=== PATIENT | female | born 1995 | race Hispanic/Latino ===

== ENCOUNTER 2017-12-07 18:38 | Emergency (ER) | payer OTHER ==
[2017-12-07 21:09] LABS: BASO % 0.4 % (0.0-1.0); EOS # 0.1 10^3/uL (0.0-0.50); EOS % 0.7 % (0.0-3.0); HEMATOCRIT 40.1 % (36.0-47.0); HEMOGLOBIN 13.9 g/dl (12.0-15.5); IMMATURE GRANULOCYTE % 0.5 % (0-3.0); LYMPH # 3.2 10^3/uL (1.5-6.5); LYMPH % 29.3 % (24.0-44.0); MEAN CORPUSCULAR HEMOGLOBIN 31.2 pg (27.0-33.0); MEAN CORPUSCULAR HGB CONC 34.7 g/dl (32.0-36.5); MEAN CORPUSCULAR VOLUME 89.9 fl (80.0-96.0); MONO # 0.7 10^3/uL (0.0-0.8); MONO % 6.1 % (0.0-5.0); PLATELET COUNT, AUTOMATED 245 10^3/uL (150-450); RED BLOOD COUNT 4.46 10^6/uL (4.00-5.40); RED CELL DISTRIBUTION WIDTH 14.2 % (11.5-14.5); WHITE BLOOD COUNT 11.1 10^3/uL (4.0-10.0)
[2017-12-07 21:37] LABS: ALBUMIN/GLOBULIN RATIO 1.03 (1.00-1.93); ALKALINE PHOSPHATASE 94 U/L (45-117); ALT/SGPT 31 U/L (12-78); ANION GAP 9 MEQ/L (8-16); AST/SGOT 19 U/L (7-37); BILIRUBIN,DIRECT < 0.1 MG/DL (0.0-0.2); BILIRUBIN,TOTAL 0.2 MG/DL (0.2-1.0); BLOOD UREA NITROGEN 18 MG/DL (7-18); CALCIUM LEVEL 8.8 MG/DL (8.5-10.1); CARBON DIOXIDE LEVEL 27 MEQ/L (21-32); CHLORIDE LEVEL 105 MEQ/L (98-107); CPK CREATINE PHOSPHOKINASE 246 U/L (26-192); GLOMERULAR FILTRATION RATE > 60.0 (>60); GLUCOSE, FASTING 92 MG/DL (70-100); LIPASE 233 U/L (73-393); MAGNESIUM LEVEL 1.9 MG/DL (1.8-2.4); SODIUM LEVEL 141 MEQ/L (136-145); TOTAL PROTEIN 7.9 GM/DL (6.4-8.2); TROPONIN I < 0.02 NG/ML (< 0.10)
[2017-12-07 21:43] LABS: CK-MB VALUE MASS 1.1 NG/ML (<3.6); MB/CK RELATIVE INDEX 0.44 (< OR =4)
[2017-12-07 21:44] LABS: CONTROL LINE UCG INT CTR LINE PRESENT; URINE PREG TEST NEGATIVE (NEGATIVE)
[2017-12-07 21:50] LABS: KETONE, URINE AUTO RFX NEGATIVE (NEGATIVE); LEUKOCYTE ESTERASE UR AUTO RFX NEGATIVE (NEGATIVE); MUCUS, URINE RFX SMALL (NEGATIVE); NITRITE, URINE AUTO RFX NEGATIVE (NEGATIVE); RBC, URINE AUTO RFX 4 /HPF (0-3); SPECIFIC GRAVITY UR AUTO RFX 1.018 (1.002-1.035); SQUAM EPITHELIAL CELL UR AURFX 0 /HPF (0-6); WBC, URINE AUTO RFX 1 /HPF (0-3)
[2017-12-07] MEDS: NS 1,000 ML IV (21:50)
[2017-12-07 22:16] LABS: D-DIMER QUANT 328.7 ng/ml (<500)
[2017-12-07] MEDS: KETOROLAC 30 MG/ML VIAL (J1885) IV (22:27)
[2017-12-07] MEDS: KETOROLAC TROMETHAMINE 10 MG TAB PO (23:12)
== END 2017-12-07 23:20 | disposition home or self-care (01) ==
LOC: M ED 18:38
DX: R51 Headache (principal); R07.89 Other chest pain; R06.02 Shortness of breath; Z91.018 Allergy to other foods
CPT/HCPCS: J1885

== ENCOUNTER 2018-03-01 14:33 | Inpatient (IN) | payer OTHER ==
[2018-03-01 15:08] LABS: HEMATOCRIT 41.6 % (36.0-47.0); MEAN CORPUSCULAR HEMOGLOBIN 30.9 pg (27.0-33.0); MEAN CORPUSCULAR HGB CONC 33.7 g/dl (32.0-36.5); MEAN CORPUSCULAR VOLUME 91.8 fl (80.0-96.0); PLATELET COUNT, AUTOMATED 285 10^3/uL (150-450); RED BLOOD COUNT 4.53 10^6/uL (4.00-5.40); RED CELL DISTRIBUTION WIDTH 13.5 % (11.5-14.5)
[2018-03-01 15:42] LABS: AMPHETAMINES LEVEL URINE NEGATIVE (NEGATIVE); BARBITURATES URINE NEGATIVE (NEGATIVE); BENZODIAZEPINES URINE NEGATIVE (NEGATIVE); CANNABINOIDS URINE NEGATIVE (NEGATIVE); COCAINE METABOLITE URINE NEGATIVE (NEGATIVE); METHADONE URINE NEGATIVE (NEGATIVE); OPIATES URINE NEGATIVE (NEGATIVE); PHENCYCLIDINE URINE NEGATIVE (NEGATIVE)
[2018-03-01 15:54] LABS: ACETAMINOPHEN LEVEL < 2.0 UG/ML (10.0-30.0); ALBUMIN 4.3 GM/DL (3.2-5.2); ALBUMIN/GLOBULIN RATIO 1.26 (1.00-1.93); ALKALINE PHOSPHATASE 97 U/L (45-117); ALT/SGPT 28 U/L (12-78); ANION GAP 7 MEQ/L (8-16); AST/SGOT 19 U/L (7-37); BILIRUBIN,DIRECT < 0.1 MG/DL (0.0-0.2); BILIRUBIN,TOTAL 0.2 MG/DL (0.2-1.0); BLOOD UREA NITROGEN 14 MG/DL (7-18); CALCIUM LEVEL 9.4 MG/DL (8.5-10.1); CARBON DIOXIDE LEVEL 29 MEQ/L (21-32); CHLORIDE LEVEL 106 MEQ/L (98-107); CREATININE FOR GFR 0.78 MG/DL (0.55-1.30); ETHYL ALCOHOL (ETHANOL) < 0.003 % (0.000-0.010); GLOMERULAR FILTRATION RATE > 60.0 (>60); GLUCOSE, FASTING 78 MG/DL (70-100); SALICYLATE LEVEL < 1.7 MG/DL (5.0-30.0); SODIUM LEVEL 142 MEQ/L (136-145); TOTAL PROTEIN 7.7 GM/DL (6.4-8.2)
[2018-03-01] MEDS ORDERED: ACETAMINOPHEN TAB 650MG DOSE (2X325MG) PO (19:00)
[2018-03-01] MEDS ORDERED: MAALOX 30 ML SUSP *UDC PO (19:00)
[2018-03-01] MEDS ORDERED: MOM 30ML SUSPENSION UDC PO (19:00)
[2018-03-02] MEDS: LORazepam 1 MG TAB PO (01:43)
[2018-03-02] MEDS: traZODone 50 MG TAB PO ×2 (01:43→21:51)
[2018-03-02] MEDS ORDERED: NICOTINE 21MG/24HR 1 EA TRANSDERMAL TD (02:30)
[2018-03-02] MEDS: INFLUENZA QUADRIVALENT PF VACCINE 0.5ML SYRINGE (90686) IM (09:00)
[2018-03-02] MEDS ORDERED: hydrOXYzine 10 MG TAB PO (12:45)
[2018-03-02] MEDS: NICOTINE 21MG/24HR 1 EA TRANSDERMAL TD (14:48)
[2018-03-02] MEDS: SERTRALINE HCL 50 MG TAB PO (21:51)
[2018-03-03] MEDS: NICOTINE 21MG/24HR 1 EA TRANSDERMAL TD (08:37)
[2018-03-03] MEDS: SERTRALINE HCL 50 MG TAB PO (22:39)
[2018-03-03] MEDS: traZODone 50 MG TAB PO (22:39)
[2018-03-04] MEDS: NICOTINE 21MG/24HR 1 EA TRANSDERMAL TD (09:00)
== END 2018-03-04 12:56 | disposition home or self-care (01) | DRG 882 ==
LOC: M PSY 03-02 00:23 → M ED 14:33 → M ED INP 18:58
DX: F43.10 Post-traumatic stress disorder, unspecified (principal); R45.851 Suicidal ideations; F17.210 Nicotine dependence, cigarettes, uncomplicated; F32.9 Major depressive disorder, single episode, unspecified; Z91.018 Allergy to other foods; Z79.899 Other long term (current) drug therapy

== ENCOUNTER 2019-01-14 11:17 | Emergency (ER) | payer OTHER ==
[~2019-01-14] VITALS: Ht 154.9 cm; Wt 73.2 kg
[~2019-01-14 11:17] MED LIST: HYDR-643 PO; NEXP1IMP SC; SERT-141 PO; TRAM50TA2 PO; TRAZ1TAB10 PO
[2019-01-14] MEDS ORDERED: ONDA-83 (11:29)
[2019-01-14] MEDS ORDERED: VITA-122 (11:29)
--- NOTE | 2019-01-14 12:58 | REP ---
Clinical: Right pelvic pain . Technique: Transabdominal pelvic ultrasound followed by transvaginal examination for better evaluation of the endometrium and adnexa with color Doppler evaluation of the ovaries. Findings: Bladder is empty Normal anteverted uterus measures 6.4 x 2.6 x 3.7 cm. The endometrial complex measures 2.3 mm thickness. No discrete uterine or endometrial abnormalities are appreciated. Bilateral ovaries are normal in vascularity without evidence for torsion. Right ovary measures 3.4 x 1.6 x 1.4 cm; R I = 0.54, and includes 1.3 cm involuting follicle. Left ovary measures 1.8 x 1.6 x 1.9 cm; R I = 0.54. No free fluid or pelvic mass lesion. Impression: 1. Involuting right ovarian follicle. 2. Otherwise normal uterus and left ovary. Electronically Signed by Paul Blackmon MD 01/14/2019 12:50 P
[2019-01-14] MEDS ORDERED: METR-265 PO (13:21)
[2019-01-14] MEDS ORDERED: TYLETAB14 PO (13:21)
[2019-01-14 13:27] VITALS: BP 116/78
== END 2019-01-14 13:30 | disposition home or self-care (01) ==
LOC: M ED 11:17
DX: N76.0 Acute vaginitis (principal); N83.01 Follicular cyst of right ovary; F41.9 Anxiety disorder, unspecified; F32.9 Major depressive disorder, single episode, unspecified; Z79.899 Other long term (current) drug therapy; Z91.02 Food additives allergy status

== ENCOUNTER → 2019-07-23 | Outpatient (CLI) | payer OTHER ==
[~2019-07-23] MED LIST changes: +METR-265 PO; +ONDA-83; +TYLETAB14 PO; +VITA-122
--- NOTE | 2019-07-24 16:08 | SLEEPCENT ---
DATE OF PROCEDURE:07/23/2019 ORDERED BY: Janene Dickerson Nocturnal polysomnography was performed for evaluation of sleep physiology in this patient with history of excessive somnolence and nonrestorative sleep. 7 hours and 3 minutes of data were reviewed. There were 353 minutes of sleep identified. Sleep latency was prolonged at 62.5 minutes. REM latency was normal at 71.5-minutes. Sleep architecture was fair with three REM cycles noted. Overall sleep efficiency 84.6%. The patient's electrocardiogram showed sinus rhythm with an average heart rate of 63 beats per minute. EEG showed reasonably normal waveforms for awake and sleep. There were 45 respiratory events identified of 10 seconds in duration or greater for an apnea-hypopnea index of 7.6. The events were obstructive not exclusive to sleep stage though REM clustering was appreciated, were seen only in the supine posture. However, the patient spent much of her night in the supine posture. Arousals from respiratory events occurred 1.2 times per hour and oxygen desaturations were seen in the 80s with little limb activity and arousals from limb events were few. IMPRESSION: Mild positional obstructive sleep apnea syndrome (G47.33). Apnea-hypopnea index 7.6. RECOMMENDATIONS: Initial treatment with sleep position retraining for avoidance of the supine posture may be helpful. However, given the patient's oxygen desaturations close clinical followup is recommended and if sleep symptoms persist then referral back to sleep disorder center for pressure therapy would be appropriate.
== END ==
LOC: M SLEEP 20:00
PROVIDERS: ATTEND Nurse Practitioner Family
DX: G47.33 Obstructive sleep apnea (adult) (pediatric) (principal)

== ENCOUNTER → 2019-09-04 | Outpatient (CLI) | payer OTHER ==
--- NOTE | 2019-09-05 22:30 | SLEEPCENT ---
DATE OF PROCEDURE: 09/04/2019 Ordered by: RITA Franco Nocturnal polysomnography was performed for the titration of pressure therapy in this patient with obstructive sleep apnea syndrome. Apnea-hypopnea index 7.8. For testing, a [employer] full-face mask of small size was used, 4 cm of water pressure were applied to the circuit and the lights were extinguished. 7 hours and 16 minutes of data were reviewed. There were 436 minutes of sleep identified. Sleep latency was normal at 24 minutes. REM sleep was not achieved. Sleep architecture showed poor progression. Overall sleep efficiency was 89.1%. The electrocardiogram showed a sinus rhythm with an average heart rate of 82 beats per minute. EEG showed reasonably normal waveforms for awake and sleep. Obstructive respiratory events were reasonably palliated with C-PAP at a pressure of +4. Pressure increases were made to address snoring, but there were no significant oxygen desaturations appreciated. IMPRESSION Obstructive sleep apnea syndrome (G47.33) RECOMMENDATIONS Nightly use of pressure therapy 4 cm of water.
== END ==
LOC: M SLEEP 20:00
PROVIDERS: ATTEND Nurse Practitioner Family
DX: G47.33 Obstructive sleep apnea (adult) (pediatric) (principal)